=== PATIENT | female | born 1995 | race Caucasian/White ===

== ENCOUNTER 2017-08-28 11:43 | Emergency (ER) | payer OTHER ==
[~2017-08-28] VITALS: Ht 167.6 cm; Wt 85.7 kg
[2017-08-28 11:51] VITALS: BP 152/89
[2017-08-28] MEDS ORDERED: KETOROLAC 60 MG/2 ML VIAL IM ONE (12:05)
[2017-08-28] MEDS ORDERED: DEXAMETHASONE 10 MG/ML VIAL IM ONE (12:05)
[2017-08-28 12:58] VITALS: BP 150/89
== END 2017-08-28 13:50 | disposition home or self-care (01) ==
LOC: MED 11:43
DX: M06.9 Rheumatoid arthritis, unspecified (principal); Z76.0 Encounter for issue of repeat prescription
CPT/HCPCS: 96372; 99284; J1100; J1885